=== PATIENT | female | born 1955 | race Caucasian/White ===

== ENCOUNTER 2017-03-31 20:30 | Emergency (ER) | payer SELFPAY ==
--- NOTE | 2017-04-01 04:41 | Emergency Department Report ---
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 Positive for pruritus. Admits to some pain but mostly pruritic. Denies history of similar symptoms. Denies history of allergies. Denies fever, chills, nausea, vomiting, chest pain, shortness of breath, abdominal pain. Denies difficulty in breathing or swallowing. ED Past Medical Hx - Past Medical History Previous Medical History?: No - Surgical History Past Surgical History?: No - Social History Smoking Status: Never Smoker Substance Use Type: None - Medications Home Medications: Home Medications Medication Instructions Recorded Confirmed Last Taken Type Cephalexin [Keflex] 500 mg PO Q12HR #20 cap 04/01/17 Unknown Rx Hydroxyzine HCl 25 mg PO TID #21 tablet 04/01/17 Unknown Rx Sulfamethoxazole/Trimethoprim 1 each PO BID #20 tablet 04/01/17 Unknown Rx [Bactrim DS TAB] ED Review of Systems ROS: Stated complaint: RASH ON LEFT ARM Other details as noted in HPI Constitutional: denies: chills, fever, malaise Eyes: denies: eye pain ENT: denies: ear pain, throat pain, congestion Respiratory: denies: cough, shortness of breath, wheezing Cardiovascular: denies: chest pain, palpitations Endocrine: no symptoms reported Gastrointestinal: denies: abdominal pain, nausea, vomiting Skin: rash, pruritus Neurological: denies: headache, weakness, numbness, paresthesias Physical Exam - Physical Exam Vital Signs: Vital Signs 03/31/17 20:40 Temperature 97.8 F Pulse Rate 88 Respiratory 20 Rate Blood Pressure 178/79 [Right] O2 Sat by Pulse 100 Oximetry Physical Exam: GENERAL: The patient is well-developed and well-nourished. Patient is in NAD. HEAD: Normocephalic. Atraumatic. SKIN: Vesicular rash over an erythematous base noted of ventral aspect of distal left forearm, appears to be weeping. Positive for pruritus. Minimal tenderness to palpation. Full wrist, hand, digit range of motion. Normal sensation. 2 point discrimination intact. Peripheral pulses intact. Capillary refill less than 2 seconds. NECK: Supple, nontender, without lymphadenopathy. No meningitic signs are noted. CHEST/LUNGS: Clear to auscultation throughout. HEART/CARDIOVASCULAR: Regular rate and rhythm. No murmurs, rubs or gallops. ABDOMEN: Abdomen is soft, nontender. Bowel sounds normoactive. No guarding or rebound tenderness. EXTREMITIES: Peripheral pulses intact. Capillary refill less than 2 seconds. NEURO: Alert and oriented x 3. Normal gait. ED Course Vital Signs 03/31/17 20:40 Temperature 97.8 F Pulse Rate 88 Respiratory 20 Rate Blood Pressure 178/79 [Right] O2 Sat by Pulse 100 Oximetry ED Medical Decision Making - Medical Decision Making 62-year-old female presents today complaining of a rash to her left arm. Patient is in no acute distress at this time. She will be discharged home and is encouraged to follow up with a primary care provider. Patient has been provided with a referral for financial cost analyst to follow-up with. She will be sent home on hydroxyzine, Keflex and Bactrim and is encouraged to return to the emergency room for any worsening symptoms. Critical care attestation.: If time is entered above; I have spent that time in minutes in the direct care of this critically ill patient, excluding procedure time. ED Disposition Clinical Impression: Rash and nonspecific skin eruption Cellulitis Qualifiers: Site of cellulitis: extremity Site of cellulitis of extremity: upper extremity Laterality: left Qualified Code(s): L03.114 - Cellulitis of left upper limb Disposition: - TO HOME OR SELFCARE Is pt being admited?: No Does the pt Need Aspirin: No Condition: Stable Instructions: Acute Rash (ED) Additional Instructions: Follow-up with primary care provider or financial cost analyst. Return to the emergency department if symptoms worsen. Prescriptions: Cephalexin [Keflex] 500 mg PO Q12HR #20 cap Hydroxyzine HCl 25 mg PO TID #21 tablet Sulfamethoxazole/Trimethoprim [Bactrim DS TAB] 1 each PO BID #20 tablet Referrals: PRIMARY CARE, [Primary Care Provider] - 3-5 Days EVELINE JASON MD [Referring] - 3-5 Days AAMIR MENDOZA MD [Referring] - 3-5 Days Forms: Work/School Release Form(ED), Accompanied Note Time of Disposition: 04:44
[2017-04-01 04:46] VITALS: BP 135/75
== END 2017-04-01 05:14 | disposition home or self-care (01) ==
LOC: ED 20:30
DX: L03.114 Cellulitis of left upper limb (principal)
CPT/HCPCS: 99282